=== PATIENT | female | born 2000 | race African-American/Black ===

== ENCOUNTER 2022-06-15 06:00 | Inpatient (IN) | payer OTHER ==
[~2022-06-15] VITALS: Ht 162.6 cm; Wt 86.6 kg
[2022-06-15] MEDS ORDERED: IRON18 MG PO (07:05)
[2022-06-15] MEDS ORDERED: PRENATAL TABLE1 EAC1 PO (07:05)
== END 2022-06-19 13:52 | disposition home or self-care (01) | DRG 833 ==
LOC: OBS/DEL 06:00 → LDR 17:56 → OB/GYN 06-17 10:05
PROVIDERS: ADMIT Obstetrics & Gynecology Obstetrics; ATTEND Obstetrics & Gynecology Obstetrics
PROC: 4A1HXCZ Monitoring of Products of Conception, Cardiac Rate, External Approach (ICD-10-PCS; principal; 2022-06-15)
DX: O23.33 Infections of other parts of urinary tract in pregnancy, third trimester (principal); Z3A.37 37 weeks gestation of pregnancy; Z20.822 Contact with and (suspected) exposure to COVID-19

== ENCOUNTER 2022-06-24 12:53 | Inpatient (IN) | payer OTHER ==
[~2022-06-24] VITALS: Ht 162.6 cm; Wt 86.6 kg
[~2022-06-24 12:53] MED LIST: IRON18 MG PO; PRENATAL TABLE1 EAC1 PO
== END 2022-06-27 12:51 | disposition home or self-care (01) | DRG 768 ==
LOC: LDR 12:53 → OB/GYN 12:53
PROVIDERS: ADMIT Obstetrics & Gynecology Obstetrics; ATTEND Obstetrics & Gynecology Obstetrics
PROC: 10E0XZZ Delivery of Products of Conception, External Approach (ICD-10-PCS; principal; 2022-06-25)
PROC: 0DQR0ZZ Repair Anal Sphincter, Open Approach (ICD-10-PCS; 2022-06-25)
PROC: 0W8NXZZ Division of Female Perineum, External Approach (ICD-10-PCS; 2022-06-25)
PROC: 4A1HXCZ Monitoring of Products of Conception, Cardiac Rate, External Approach (ICD-10-PCS; 2022-06-25)
DX: O70.21 Third degree perineal laceration during delivery, IIIa (principal); Z37.0 Single live birth; Z3A.39 39 weeks gestation of pregnancy; Z20.822 Contact with and (suspected) exposure to COVID-19